=== PATIENT | female | born 1950 | race Hispanic/Latino ===

== ENCOUNTER 2018-05-02 09:26 | Emergency (ER) | payer OTHER ==
[2018-05-02 09:40] VITALS: BP 142/76
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
--- NOTE | 2018-05-02 12:33 | XRay Report ---
RIGHT HIP, 2 views: History: Hip pain. The bony architecture is intact without evidence of fracture or dislocation. No significant soft tissue abnormality is seen. IMPRESSION: Normal right hip.
[2018-05-02] MEDS ORDERED: IBUPROFEN PO ONE (12:56)
== END 2018-05-02 13:52 | disposition home or self-care (01) ==
LOC: ED 09:26
DX: M79.10 Myalgia, unspecified site (principal); I10 Essential (primary) hypertension; E11.9 Type 2 diabetes mellitus without complications; V89.2XXA Person injured in unspecified motor-vehicle accident, traffic, initial encounter; Y93.89 Activity, other specified; Y92.410 Unspecified street and highway as the place of occurrence of the external cause; Y99.8 Other external cause status
CPT/HCPCS: 93005; 93010